=== PATIENT | male | born 1950 | race Caucasian/White ===

== ENCOUNTER 2018-10-04 11:12 | Outpatient (CLI) | payer MEDICARE, OTHER ==
[2018-10-04 19:33] LABS: BASOPHILS % (AUTO) 0.6 %; EOSINOPHILS # (AUTO) 0.1 10^3/uL (0.0-0.7); EOSINOPHILS % (AUTO) 2.1 %; HGB - HEMOGLOBIN 16.2 g/dL (14.0-18.0); LYMPHOCYTES # (AUTO) 1.3 10^3/uL (1.5-3.5); LYMPHOCYTES % (AUTO) 27.5 %; MEAN CORPUSCULAR HEMOGLOBIN 28.2 pg (27.0-31.0); MEAN CORPUSCULAR HGB CONC 32.2 g/dL (32.0-36.0); MEAN CORPUSCULAR VOLUME 87.7 fL (80.0-94.0); MEAN PLATELET VOLUME 8.6 fL (7.4-11.4); MONOCYTES # (AUTO) 0.5 10^3/uL (0.0-1.0); MONOCYTES % (AUTO) 9.7 %; NEUTROPHILS # (AUTO) 2.8 10^3/uL (1.5-6.6); NEUTROPHILS % (AUTO) 60.1 %; PLT - PLATELET COUNT 261 10^3/uL (130-450); RED BLOOD COUNT 5.73 10^6/uL (4.70-6.10); WHITE BLOOD COUNT 4.7 x10^3/uL (4.8-10.8)
[2018-10-04 19:58] LABS: ALBUMIN 4.3 g/dL (3.2-5.5); ALBUMIN/GLOBULIN RATIO 1.4 (1.0-2.2); ALKALINE PHOSPHATASE 73 IU/L (42-121); ALT ALANINE AMINOTRANSFERASE 32 IU/L (10-60); AST ASPARTATE AMINOTRANSFERASE 23 IU/L (10-42); BILIRUBIN,TOTAL 0.8 mg/dL (0.2-1.0); BUN - BLOOD UREA NITROGEN 19 mg/dL (6-20); CARBON DIOXIDE - CO2 27 mmol/L (21-32); CHLORIDE 106 mmol/L (101-111); CHOL/HDL RATIO 2.6 (<5.0); CHOLESTEROL 154 mg/dL; CREATININE 0.9 mg/dL (0.6-1.2); GFR - MDRD 84 (>89); GLUCOSE 101 mg/dL (70-100); HDL CHOLESTEROL 60 mg/dL; LDL CHOLESTEROL,CALCULATED 84 mg/dL; LDL/HDL RATIO 1.4 (<3.6); SODIUM 136 mmol/L (135-145); TOTAL PROTEIN 7.3 g/dL (6.7-8.2); VLDL CHOLESTEROL 10 mg/dL
== END 2018-10-04 23:59 | disposition home or self-care (01) ==
LOC: LAB.WCP 11:12
PROVIDERS: ATTEND Family Medicine
DX: I10 Essential (primary) hypertension (principal); R03.0 Elevated blood-pressure reading, without diagnosis of hypertension; M17.9 Osteoarthritis of knee, unspecified; Z12.10 Encounter for screening for malignant neoplasm of intestinal tract, unspecified; Z47.1 Aftercare following joint replacement surgery; M17.12 Unilateral primary osteoarthritis, left knee
CPT/HCPCS: 36415; 80053; 80061; 83721; 84443; 85025

== ENCOUNTER 2021-04-29 07:00 | Outpatient (CLI) | payer MEDICARE, OTHER ==
[2021-04-29 12:44] LABS: HCT - HEMATOCRIT 49.6 % (42.0-52.0); MEAN CORPUSCULAR HEMOGLOBIN 28.1 pg (27.0-31.0); MEAN CORPUSCULAR HGB CONC 32.3 g/dL (32.0-36.0); MEAN CORPUSCULAR VOLUME 87.2 fL (80.0-94.0); MEAN PLATELET VOLUME 10.3 fL (7.4-11.4); RED BLOOD COUNT 5.69 10^6/uL (4.70-6.10); RED CELL DISTRIBUTION WIDTH 14.5 % (12.0-15.0); WHITE BLOOD COUNT 5.7 x10^3/uL (4.8-10.8)
[2021-04-29 12:55] LABS: CALCIUM 8.7 mg/dL (8.5-10.3); CREATININE 0.9 mg/dL (0.6-1.2); POTASSIUM 4.1 mmol/L (3.5-5.0)
== END 2021-04-29 23:59 | disposition home or self-care (01) ==
LOC: LAB.N 07:00
PROVIDERS: ATTEND Family Medicine
DX: R06.09 Other forms of dyspnea (principal)
CPT/HCPCS: 36415; 80048; 83880; 85027

== ENCOUNTER 2021-09-06 09:19 | Outpatient (CLI) | payer MEDICARE, OTHER ==
[2021-09-06 12:06] LABS: BASOPHILS % (AUTO) 0.9 %; EOSINOPHILS # (AUTO) 0.1 10^3/uL (0.0-0.7); EOSINOPHILS % (AUTO) 2.4 %; HCT - HEMATOCRIT 49.6 % (42.0-52.0); HGB - HEMOGLOBIN 16.1 g/dL (14.0-18.0); LYMPHOCYTES # (AUTO) 1.2 10^3/uL (1.5-3.5); LYMPHOCYTES % (AUTO) 25.2 %; MEAN CORPUSCULAR HEMOGLOBIN 28.3 pg (27.0-31.0); MEAN CORPUSCULAR HGB CONC 32.5 g/dL (32.0-36.0); MEAN CORPUSCULAR VOLUME 87.2 fL (80.0-94.0); MONOCYTES # (AUTO) 0.4 10^3/uL (0.0-1.0); MONOCYTES % (AUTO) 9.4 %; NEUTROPHILS # (AUTO) 2.8 10^3/uL (1.5-6.6); NEUTROPHILS % (AUTO) 61.7 %; PLT - PLATELET COUNT 299 10^3/uL (130-450); RED BLOOD COUNT 5.69 10^6/uL (4.70-6.10); RED CELL DISTRIBUTION WIDTH 14.3 % (12.0-15.0); WHITE BLOOD COUNT 4.6 x10^3/uL (4.8-10.8)
[2021-09-06 14:26] LABS: ALBUMIN 4.5 g/dL (3.2-5.5); ALBUMIN/GLOBULIN RATIO 1.5 (1.0-2.2); ALKALINE PHOSPHATASE 61 IU/L (42-121); ALT ALANINE AMINOTRANSFERASE 29 IU/L (10-60); AST ASPARTATE AMINOTRANSFERASE 20 IU/L (10-42); BILIRUBIN,TOTAL 1.2 mg/dL (0.2-1.0); BUN - BLOOD UREA NITROGEN 25 mg/dL (6-20); CALCIUM 9.5 mg/dL (8.5-10.3); CARBON DIOXIDE - CO2 27 mmol/L (21-32); CHLORIDE 105 mmol/L (101-111); CHOL/HDL RATIO 2.7 (<5.0); CHOLESTEROL 170 mg/dL; GFR - MDRD 74 (>89); GLUCOSE 107 mg/dL (70-100); HDL CHOLESTEROL 62 mg/dL; LDL CHOLESTEROL,CALCULATED 95 mg/dL; LDL/HDL RATIO 1.5 (<3.6); POTASSIUM 4.2 mmol/L (3.5-5.0); SODIUM 142 mmol/L (135-145); TOTAL PROTEIN 7.6 g/dL (6.7-8.2); TRIGLYCERIDES 63 mg/dL; VLDL CHOLESTEROL 13 mg/dL
== END 2021-09-06 23:59 | disposition home or self-care (01) ==
LOC: LAB.WCP 09:19
PROVIDERS: ATTEND Internal Medicine
DX: I10 Essential (primary) hypertension (principal); Z12.5 Encounter for screening for malignant neoplasm of prostate
CPT/HCPCS: 36415; 80053; 80061; 85025; G0103; 83721; 84153

== ENCOUNTER 2022-08-22 17:48 | Outpatient (CLI) | payer MEDICARE, OTHER | END 2022-08-22 23:59 | disposition home or self-care (01) | LOC: LAB.N 17:48 | PROVIDERS: ATTEND Physician Assistant | DX: R31.9 Hematuria, unspecified (principal) | CPT/HCPCS: 87086 ==

== ENCOUNTER 2022-09-19 15:10 | Outpatient (CLI) | payer MEDICARE, OTHER ==
[2022-09-19 15:34] LABS: CREATININE 0.9 mg/dL (0.6-1.2)
== END 2022-09-19 15:11 | disposition home or self-care (01) ==
LOC: LAB 15:10
PROVIDERS: ATTEND Urology
DX: Z87.898 Personal history of other specified conditions (principal)
CPT/HCPCS: 36415; 82565; 84520

== ENCOUNTER 2023-08-20 11:38 | Outpatient (CLI) | payer MEDICARE, OTHER ==
--- NOTE | 2023-08-20 15:10 | XRAY Report ---
PROCEDURE: Knee 3 View RT INDICATIONS: KNEE PX,RIGHT TECHNIQUE: 3 views of the right knee(s) were acquired. COMPARISON: None. FINDINGS: Bones: No fractures or dislocations. No suspicious bony lesions. Severe right knee tricompartmental osteoarthritis with joint space narrowing, subchondral sclerosis and osseous hypertrophy. Soft tissues: No knee joint effusion. No suspicious soft tissue masses. Chondrocalcinosis. IMPRESSION: Severe right knee tricompartmental osteophytosis. Reviewed by: Ivanna Gee MD, PhD on 08/20/2023 3:08 PM PDT Approved by: Ivanna Gee MD, PhD on 08/20/2023 3:08 PM PDT Station ID: [id number]
== END 2023-08-20 11:39 | disposition home or self-care (01) ==
LOC: DI 11:38
PROVIDERS: ATTEND Family Medicine
DX: M25.761 Osteophyte, right knee (principal)

== ENCOUNTER 2023-09-01 08:00 | Outpatient (CLI) | payer MEDICARE, OTHER ==
--- NOTE | 2023-09-01 18:17 | XRAY Report ---
PROCEDURE: Knee 3 View RT INDICATIONS: RIGHT KNEE PAIN, BILAT AP, RIGHT OBL, RIGHT PA TUNNEL TECHNIQUE: 3 views of the knee was obtained. COMPARISON: None FINDINGS: Bones: Moderate medial and lateral compartmental joint space narrowing with stippled meniscal calcif ication and small marginal osteophytes noted. Incidental left lateral hemiarthroplasty in good positi on. Soft tissues: No radiopaque foreign body. IMPRESSION: Moderate medial and lateral compartmental osteoarthritis No fracture Reviewed by: Bonifacio Shepard MD on 09/01/2023 5:16 PM [email or web address] Approved by: Bonifacio Shepard MD on 09/01/2023 5:16 PM AKDT Station ID: [id number]
== END 2023-09-01 23:59 | disposition home or self-care (01) ==
LOC: DI.WOS 08:00
PROVIDERS: ATTEND Physician Assistant Surgical
DX: M17.11 Unilateral primary osteoarthritis, right knee (principal)

== ENCOUNTER 2023-09-22 08:00 | Outpatient (CLI) | payer MEDICARE, OTHER ==
--- NOTE | 2023-09-22 15:53 | XRAY Report ---
PROCEDURE: Knee 3 View RT INDICATIONS: RIGHT KNEE INJURY PROXIMAL FIBULA FRACTURE TECHNIQUE: 09/01/2023 views of the knee(s) were acquired. COMPARISON: None. FINDINGS: Bones: No fractures or dislocations. No suspicious bony lesions. Chondrocalcinosis. Bulky tricomp artment osteophytes. Moderate to severe medial and lateral compartment joint space loss. Soft tissues: Trace knee joint effusion. No suspicious soft tissue calcifications or masses. 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 Reviewed by: Spencer Keating MD on 09/22/2023 3:52 PM PST Approved by: Spencer Keating MD on 09/22/2023 3:52 PM PST Station ID: [id number]
== END 2023-09-22 23:59 | disposition home or self-care (01) ==
LOC: DI.WOS 08:00
PROVIDERS: ATTEND Physician Assistant Surgical
DX: M17.11 Unilateral primary osteoarthritis, right knee (principal); M11.261 Other chondrocalcinosis, right knee